=== PATIENT | male | born 1955 | race Caucasian/White ===

== ENCOUNTER 2021-02-15 09:26 | Outpatient (CLI) | payer MEDICARE | END 2021-02-15 23:59 | disposition home or self-care (01) | LOC: RAD 09:26 | PROVIDERS: ATTEND Psychiatry & Neurology Neurology | DX: M47.814 Spondylosis without myelopathy or radiculopathy, thoracic region (principal); M50.323 Other cervical disc degeneration at C6-C7 level; M51.36 Other intervertebral disc degeneration, lumbar region; M48.54XA Collapsed vertebra, not elsewhere classified, thoracic region, initial encounter for fracture; M19.019 Primary osteoarthritis, unspecified shoulder | CPT/HCPCS: 77075 ==